=== PATIENT | male | born 1985 | race Caucasian/White ===

== ENCOUNTER 2020-03-01 21:15 | Emergency (ER) | payer SELFPAY ==
[2020-03-01 21:17] VITALS: BP 127/72; PULSE 89; RESP 18; TEMP 36.7; O2SAT 96; BMI 23.1
--- NOTE | 2020-03-01 21:17 | XRR_ITS ---
PROCEDURE INFORMATION: Exam: XR Right Ankle Exam date and time: 03/01/2020 9:35 PM Age: 34 years old Clinical indication: Injury or trauma; Fall; Blunt trauma; Ankle; Right; Injury date: 03/01/20 TECHNIQUE: Imaging protocol: XR Right ankle. Views: 3 or more views. COMPARISON: No relevant prior studies available. FINDINGS: Bones/joints: Normal. Soft tissues: Normal. XR/XR ankle RT min 3V* [id number] IMPRESSION: No acute findings.
[2020-03-01] MEDS: HYDROcodone-acetaminophen 7.5-325 mg Tablet 1 TAB PO (21:42)
--- NOTE | 2020-03-01 21:51 | ED_ITS ---
HPI - Extremity Problem General: Chief complaint: Extremity Injury, Lower Stated complaint: fall/right ankle pain Time Seen by Provider: 03/01/20 21:17 Source: patient Mode of arrival: ambulatory Limitations: no limitations History of Present Illness: HPI Narrative: 34-year-old male states he was hanging lights tonight and fell off a ladder roughly 6 foot. States he landed on his right ankle and has right ankle pain. He states he has not been able to bear weight. States pain is sharp in nature and rates it a 9 out of 10. Denies any knee pain. Denies hitting his head. Associated symptoms: Deny chest pain, fever(s) or rash Review of Systems Const: Denies: fever(s), chills, body aches or change in appetite Eyes: Denies: blurry vision or eye discomfort ENMT: Denies: throat pain or dental pain Card: Denies: chest pain Resp: Denies: dyspnea GI: Denies: abdominal pain, nausea, vomiting or diarrhea : Denies: dysuria Musc: Reports: extremity pain; Denies: neck pain or back pain Skin/Breast: Denies: rash Neuro: Denies: headache(s) Psych: Denies: depression Leander/Lymph: Denies: easy bruising All/Imm: Denies: urticaria Physical Exam Const: COMMON NORMALS: no acute distress, patient oriented x3 and healthy appearing HENMT: COMMON NORMALS: normocephalic and atraumatic HEAD & SCALP: normocephalic and atraumatic Eye: COMMON NORMALS: Equal, round and reactive pupils present and EOMs intact bilaterally PUPIL: Yes Equal, round and reactive pupils present Neck/C-Spine: COMMON NORMALS: full ROM and supple Chest: COMMONS NORMALS: normal inspection of the chest and normal palpation of entire chest wall Resp: COMMON NORMALS: normal respiratory effort, No retractions, No use of accessory muscles and clear to auscultation bilaterally AUSCULTATION: clear to auscultation bilaterally Cardio: COMMON NORMALS: regular rate, regular rhythm and No murmurs present (Cardio) RATE: regular rate RHYTHM: regular rhythm GI: COMMON NORMALS: Normal to inspection, nondistended, normoactive bowel sounds present, Soft to palpation, non-tender and no masses PALPATION: Yes Soft to palpation Extremity: COMMON NORMALS: full ROM NARRATIVE EXTREMITY EXAM: Tenderness to ankle with distal pulses intact. Does have swelling over the ankle. Neuro: COMMON NORMALS: patient oriented x3, moves all extremities and no focal motor deficits Psych: COMMON NORMALS: mental status grossly normal, Normal thought process present and cooperative THOUGHT PROCESS: Normal thought process present Skin: COMMON NORMALS: no rashes or lesions noted and no wounds GENERAL SKIN EXAM: no rashes or lesions noted Course Vital Signs: Vital signs: Vital Signs Temperature 98.1 F 03/01/20 21:17 Pulse Rate 89 03/01/20 21:17 Respiratory Rate 18 03/01/20 21:17 Blood Pressure 127/72 03/01/20 21:17 Pulse Oximetry 96 03/01/20 21:17 MDM - Extremity (Nontraumatic) MDM Narrative: Medical decision making narrative: Patient presents here with likely ankle sprain. He has no tenderness about his right knee and x-ray shows no fractures of his ankle. Patient was placed in a splint and immobilized due to his pain. He is to follow-up with Ortho and return if worsening. Imaging Data^: X-ray right ankle: Attestation: I personally reviewed and interpreted this imaging study as follows: My impression: No acute abnormality Discharge Plan Discharge Patient Disposition: Home Clinical Impression: Ankle sprain and strain Condition: Stable Prescriptions: [place] 5-325 mg tablet 1 tab PO Q6H PRN (Reason: pain) Qty: 14 RF: 0 Discharge Orders: Discharge ED (Routine); Ordered 03/01/20 Ordered By: Cruz Rothman Referrals: Sayra Munguia MD [Physician] - 1-3 days Bryon Kang FNP [Primary Care Provider] - Discharge Diet: Advance as tolerated Discharge Activity: Resume usual activity Patient Instructions: Ankle Sprain (ED) Coding Level of Care Code ED 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
[2020-03-01 22:00] VITALS: BP 145/91; PULSE 87; RESP 16; O2SAT 98
--- NOTE | 2020-03-02 09:12 | DCPLANNER ---
Addendum entered by Maryellen Sifuentes 03/13/20 08:59: environmental health and safety manager called ortho to confirm that a follow up appointment had been scheduled for patient. environmental health and safety manager was told that clinic was unable to reach patient at this time. environmental health and safety manager called [phone] unable to speak with patient, and unable to leave a voicemail for patient - no voicemail box set up. Original Note: environmental health and safety manager had message to schedule a follow up appointment for patient with ortho. environmental health and safety manager called the ortho clinic, spoke with Bernie, gave clinic patients information. environmental health and safety manager was told that patients information would be printed and reviewed. Clinic will call patient with appointment information.
== END 2020-03-01 22:08 | disposition home or self-care (01) ==
LOC: ER 21:44
PROVIDERS: Emergency Provider Emergency Medicine; PCP Nurse Practitioner Family
DX: S93.401A Sprain of unspecified ligament of right ankle, initial encounter (principal); S96.911A Strain of unspecified muscle and tendon at ankle and foot level, right foot, initial encounter; W11.XXXA Fall on and from ladder, initial encounter
CPT/HCPCS: 12345; 29515; 73610; 99281; 99283; E0114